=== PATIENT | male | born 1975 | race Caucasian/White ===

== ENCOUNTER 2017-11-14 08:26 | Inpatient (IN) ==
--- NOTE | 2017-11-13 16:29 | Discharge Summary ---
<Chris De Anda - Last Filed: 11/14/17 08:31> Orders not resulted at time of discharge: Pending orders 11/14/17 01:00 XR hip complete RT [XR] Routine Hemoglobin and Hematocrit [HEME] Routine Date of Encounter: 11/14/17 - Discharge Diagnosis (1) Morbid obesity with BMI of 40.0-44.9, adult Priority: Secondary Status: Chronic (2) Osteoarthritis of right hip Priority: Primary Status: Chronic Qualifiers: Osteoarthritis type: resulting from hip dysplasia Qualified Code(s): M16.31 - Unilateral osteoarthritis resulting from hip dysplasia, right hip (3) Status post total hip replacement, right Priority: Primary Status: Acute (4) HTN (hypertension) Priority: Secondary Status: Chronic Qualifiers: Hypertension type: unspecified Qualified Code(s): I10 - Essential (primary ) hypertension (5) Hypothyroidism Priority: Secondary Status: Chronic Qualifiers: Hypothyroidism type: unspecified Qualified Code(s): E03.9 - Hypothyroidism , unspecified (6) History of congenital dysplasia of hip Priority: Secondary Status: Chronic - Hospital Course Hospital course: Mr. Bear is a 42 year old male - Time Spent with Patient Total time spent providing and/or coordinating discharge services: - Discharge Medications Prescriptions: Tizanidine HCl 4 mg PO Q6-8H PRN 7 Days #28 tablet PRN Reason: Spasms Home Medications: Aspirin Enteric Coated [Aspirin EC] 325 mg PO BID 10 Days #20 tablet. [Rx] OxyCODONE Immed Rel [Roxicodone 5 MG] 5 mg PO Q6HR PRN 7 Days #28 tablet [Rx] FLUoxetine HCl [Prozac] 60 mg PO DAILY 11/14/17 [History] Levothyroxine [Synthroid] 125 mcg PO 0630 11/14/17 [History] Lisinopril 30 mg PO DAILY 11/14/17 [History] Meloxicam 15 mg PO DAILY 11/14/17 [History] clonazePAM [Klonopin] 0.5 mg PO BID PRN 11/14/17 [History] Tizanidine HCl 4 mg PO Q6-8H PRN 7 Days #28 tablet 11/16/17 [Rx] Allergies/Adverse Reactions: 3 Allergy/AdvReac Type Severity Reaction Status Date / Time No Known Allergies Allergy Verified 11/14/17 08:41 Primary care physician: Ale Cerrato - Patient Status Disposition: Home, Self-Care Condition: Good - Discharge Instructions Follow Up With: Serina Carrasco PAC [Physician Aquaculture Director] - 11/24/17 9:45 am Ale Cerrato BICYCLE INSPECTOR [Primary Care Provider] - Additional Instructions: Discharge Instructions: Total Knee Replacement Please call [facility] ([phone]), your Primary Care Physician, or report to the Emergency Room if you have any of the following symptoms: Nausea, vomiting, fever greater that 101.5, swelling, chest pain, shortness of breath, increased pain/redness/drainage/odor for your incision site, numbness/ tingling, or any other concerning symptoms. ACTIVITY:Weight-bearing as tolerated. You may progress off support (crutches or walker) as tolerated. Incentive Spirometer 10 times an hour. MEDICATIONS: Upon discharge resume your home medications. Take all the medications as prescribed. Take a stool softener if taking narcotic pain medications. Stool softeners are only effective if you drink enough fluids. Drink 6-8 glass of water or fluids a day, unless this is not allowed for another health problem. Despite using stool softeners, if you haven't had a bowel movement in 3 days, please switch to a gentle laxative. Gentle laxatives are sold over the counter. You should have a bowel movement within 24 hours, if not call the office. You will be discharged from the hospital with a prescription for pain medication. You are encouraged to decrease the use of narcotic pain medication as tolerated. Should you require a refill, please call the office. [facility] prescribes narcotic pain medication for only 4-6 weeks after surgery. If you require pain medication beyond this time period, you may be referred to your Primary Care Physician or to the Pain Clinic for further evaluation. Plan ahead for refills on pain medication as many narcotics either need to be picked up at the office or mailed. It is best to call 48-72 hours in advance of needing a prescription refill so you don't run out of medication. To help control the post-operative pain, you may take NSAIDs (Aleve,Advil, Motrin, Ibuprofen, Naprosyn) or Tylenol as prescribed on the bottle in addition to the pain medication. ANTICOAGULATION (blood thinners): Continue your Aspirin, Lovenox or Coumadin as prescribed to help prevent a blood clot in the leg or in the lungs. As long as your incision remains dry and you tolerate the NSAIDs (Aleve, Advil, Motrin, ibuprofen, naprosyn), it is OK to use the NSAIDS while you are taking your anticoagulation medication. Should your incision start to drain, stop the NSAID and contact our office. Common symptoms of blood clot in the legs include: localized pain, swelling, calf tenderness, redness or discoloration of the skin. Blood clot in the lung symptoms include: shortness of breath, rapid pulse, sweating, and chest pain that worsens with deep breathing, coughing up blood, lightheadedness, feelings of anxiety. If you experience any of these symptoms notify your physician immediately, go to the emergency room, or if having trouble breathing, call 911. WOUND CARE: Leave the dressing on for 7 to 10days. You may change the dressing if it becomes saturated greater than 50%. Do not get the dressing wet at anytime. Wash your hands with antibacterial soap, rinse and dry prior to any wound care. If you have eliezer the visiting nurse or rehab facility can remove the stapes 10-14 days after surgery and place steri-strips across the wound. Leave the steri-strips in place until they fall off on their won. You may let water from the shower run on top of the steri-strips. If you do not have a visiting nurse or rehab facility, you will need to return to the office at 10-14 days for the eliezer to be removed. If you have itching or redness around the dressing call the office. FOLLOW-UP: Please follow up with your surgeon in the orthopedic clinic in 4 weeks from the day of surgery. If you have eliezer that need to be removed, you will need to come back to the office in 10-14 days from the day of surgery. <Shayy Rodriguez E - Last Filed: 11/16/17 16:14> Orders not resulted at time of discharge: Pending orders 11/14/17 01:00 XR hip complete RT [XR] Routine Hemoglobin and Hematocrit [HEME] Routine Date of Encounter: 11/16/17 Time of Encounter: 11:56 - Discharge Diagnosis (1) Osteoarthritis of right hip Priority: Primary Status: Chronic Qualifiers: Osteoarthritis type: resulting from hip dysplasia Qualified Code(s): M16.31 - Unilateral osteoarthritis resulting from hip dysplasia, right hip (2) Status post total hip replacement, right Priority: Primary Status: Acute (3) HTN (hypertension) Priority: Secondary Status: Chronic Qualifiers: Hypertension type: unspecified Qualified Code(s): I10 - Essential (primary ) hypertension (4) Hypothyroidism Priority: Secondary Status: Chronic Qualifiers: Hypothyroidism type: unspecified Qualified Code(s): E03.9 - Hypothyroidism , unspecified (5) History of congenital dysplasia of hip Priority: Secondary Status: Chronic (6) Obesity Priority: Secondary Status: Chronic Qualifiers: Obesity type: unspecified obesity type Obesity classification: unspecified obesity classification Serious obesity comorbidity presence: unspecified whether serious comorbidity present Qualified Code(s): E66.9 - Obesity, unspecified - Hospital Course Hospital course: Mr. Bear is a 42 year old male POD#2 status post right total hip robotic 11/14/17 Dr. De Anda PCR - Patient seen at bedside. Aunt at bedside. Alert and oriented x 3. Incision is clean dry and intact. Dressing intact. No calf tenderness to palpation bilaterally. Neurovascularly intact bilateral lower extremities. Labwork and medications reviewed. Vital signs reviewed. Pain control: Adequate - Tizanidine and Lidoderm for local and systemic pain relief as well as ibuprofen for swelling and pain. Participating in PT. recommending outpatient. All questions and concerns addressed. Educated on use of incentive spirometer, ambulation, and hydration. Patient educated on post-operative restrictions and care. Addressed: see above. D/C plan: Home with outpatient therapy today - Time Spent with Patient Total time spent providing and/or coordinating discharge services: Date of admission: 11/14/17 Primary care physician: Ale Cerrato Anticipated date of discharge: 11/16/17 Labs on day of discharge: Laboratory Results - last 24 hr 11/16/17 11/16/17 00:56 00:56 Hgb 9.6 L D Hct 28.9 L Sodium 135 L Potassium 4.1 Chloride 106 Carbon Dioxide 22 L BUN 18 Creatinine 1.05 Est GFR ( Amer) > 60 Est GFR (Non-Af Amer) > 60 BUN/Creatinine Ratio 17 Glucose 109 H Calculated Osmolality 282 Calcium 8.7 Vital Signs (72 hours) 07/30/18 08:44 11/14/17 09:32 11/14/17 10:21 Temperature 98.5 F Pulse Rate 105 Respiratory Rate 18 18 15 Blood Pressure 138/91 136/78 O2 Sat by Pulse Oximetry 95 96 99 11/14/17 12:06 11/14/17 12:16 11/14/17 12:26 Temperature 97.2 F L Pulse Rate 107 116 118 Respiratory Rate 14 14 13 Blood Pressure 139/80 137/86 130/89 O2 Sat by Pulse Oximetry 92 94 90 11/14/17 12:36 11/14/17 12:46 11/14/17 13:05 Temperature 98.3 F 98.3 F 97.7 F Pulse Rate 116 113 115 Respiratory Rate 14 14 Blood Pressure 121/67 122/82 122/71 O2 Sat by Pulse Oximetry 96 97 92 11/14/17 13:34 11/14/17 14:27 11/14/17 15:56 Temperature 97.9 F 98.2 F 97.3 F L Pulse Rate 110 102 103 Respiratory Rate Blood Pressure 119/72 129/81 145/80 O2 Sat by Pulse Oximetry 99 94 96 11/14/17 18:00 11/14/17 22:23 11/15/17 02:58 Temperature 97.9 F 98.0 F 98.5 F Pulse Rate 100 109 102 Respiratory Rate 18 16 Blood Pressure 128/78 137/72 145/72 O2 Sat by Pulse Oximetry 96 93 94 11/15/17 07:39 11/15/17 10:55 11/15/17 16:10 Temperature 98.6 F 98.9 F 98.6 F Pulse Rate 115 114 120 Respiratory Rate 16 16 16 Blood Pressure 158/106 117/69 110/66 O2 Sat by Pulse Oximetry 96 95 94 11/15/17 19:19 11/15/17 23:00 11/15/17 23:19 Temperature 99.0 F 98.6 F Pulse Rate 113 101 Respiratory Rate 22 19 Blood Pressure 94/55 89/48 92/42 O2 Sat by Pulse Oximetry 93 92 11/16/17 02:28 11/16/17 07:18 Temperature 98.8 F 99.2 F Pulse Rate 103 122 Respiratory Rate 16 18 Blood Pressure 127/71 105/62 O2 Sat by Pulse Oximetry 94 94 - Patient Status Functional capacity at discharge: uses cane/walker Overall status at discharge: patient is progressing back to baseline - Diet and Activity Activity: as per physical therapy Diet: advance to your usual diet
--- NOTE | 2017-11-14 08:31 | History & Physical Report ---
Date of Encounter: 11/14/17 Time of Encounter: 08:31 24 Hour HP Update - Instructions Instructions: If the History and Physical is less than 30 days old and was completed prior to A.M. admission and or procedure and has NOT been updated on calendar day of procedure please complete this update prior to performing procedure. - Update Patient reports changes in Medical Condition: No Changes in examination, assessment, or condition: No Changes in Medication: No Preop tests/diagnostics Reviewed: Yes Surgery Remains Indicated: Yes Consent for Planned Operative Procedure(s) Verified: Yes - Pre-Operative Checklist Preoperative Checklist Indicated: No Prophylactic Antibiotic Ordered: Yes Is VTE Prophylaxis Indicated?: Yes
[2017-11-14] MEDS ORDERED: CeFAZolin Syr 2,000MG/20 ML 2,000 MG/20 ML SYRINGE IVPB ONE (08:42)
[2017-11-14] MEDS ORDERED: Ethanol\\Acetic Acid\\Na Ace\\Ben 1,000 ML IRRIG.SOLN IR ONE (08:44)
[2017-11-14] MEDS ORDERED: Ringers Solution, Lactated 1,000 ML IVC SCH ×2 (08:45→13:13)
--- NOTE | 2017-11-14 09:12 | Anesthesia Evaluation PreOp ---
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 [Rx] OxyCODONE Immed Rel [Roxicodone 5 MG] 5 mg PO Q6HR PRN 7 Days #28 tablet [Rx] Cyclobenzaprine [Flexeril] 10 mg PO BID 11/14/17 [History] FLUoxetine HCl [Prozac] 60 mg PO DAILY 11/14/17 [History] Levothyroxine [Synthroid] 125 mcg PO 0630 11/14/17 [History] Lisinopril [Lisinopril] 30 mg PO DAILY 11/14/17 [History] Meloxicam [Meloxicam] 15 mg PO DAILY 11/14/17 [History] clonazePAM [Klonopin] 0.5 mg PO BID PRN 11/14/17 [History] 3 Allergy/AdvReac Type Severity Reaction Status Date / Time No Known Allergies Allergy Verified 11/14/17 08:41 - Meds/Allergy Pre-op Review Medications Reviewed: Yes Allergies Reviewed: Yes Beta Blockers on Current Med List: No Anesthesia Results - Labs Laboratory Tests 10/31/17 10/31/17 10/31/17 13:54 13:54 13:54 Hgb 15.6 Hct 46.4 Plt Count 287 PT 10.9 INR 1.0 APTT 37.3 H Sodium 136 Potassium 3.7 Chloride 106 Carbon Dioxide 17 L BUN 16 Creatinine 1.01 Est GFR (Non-Af Amer) > 60 - Imaging EKG: report reviewed (Sinus tachycardia) Anesthesia Exam O2 Sat Height 1.7 m Height 1.7 m Height 1.7 m Weight 116.12 kg Weight 116.12 kg Weight 116.12 kg O2 Sat by Pulse Oximetry 95 Vital Signs Temp Pulse Resp BP Pulse Ox 98.5 F 105 18 138/91 95 11/14/17 08:44 11/14/17 08:44 11/14/17 08:44 11/14/17 08:44 11/14/17 08:44 NPO (# of Hours): 8 - HEENT Pupil (Motor): Pupils equal Mallampati: II Teeth: Normal Oral Opening: Greater than 3 - Cardiac Rhythm: Regular - Pulmonary Breath Sounds: bilateral Clear Anesthesia Assess/Plan ASA Score: 3 Modified [place] Scale for Level of Consciousness: Cooperative, oriented, and tranquil Anesthetic Plan: General Monitoring Plan: Standard Monitors Recovery Plan: PACU
[2017-11-14] MEDS ORDERED: *HR* Methadone 10 MG TABLET PO ONE (09:16)
[2017-11-14] MEDS ORDERED: Pregabalin 75 MG CAPSULE PO ONE (09:16)
[2017-11-14] MEDS ORDERED: Ipratropium/Albuterol Neb 3 ML IH ONE (09:16)
[2017-11-14] MEDS ORDERED: *HR* OxyCODONE Immed Rel 5 MG TABLET PO PRN (09:35)
[2017-11-14] MEDS ORDERED: *HR* HYDROmorphone (PF) 1 MG/ML SYRINGE IVP PRN (09:35)
[2017-11-14] MEDS ORDERED: *HR* Promethazine 25 MG/ML VIAL IVP PRN (09:35)
[2017-11-14] MEDS ORDERED: *HR* Labetalol 20 MG/4 ML SYRINGE IVP PRN (09:35)
[2017-11-14] MEDS ORDERED: Acetaminophen IV 1,000 MG/100 ML INFUS..BTL ONE (09:52)
[2017-11-14] MEDS ORDERED: *HR* HYDROmorphone 2 MG/ML SYRINGE ONE (09:57)
[2017-11-14] MEDS ORDERED: *HR* Propofol 200 MG/20 ML VIAL IVP ONE (10:01)
[2017-11-14] MEDS ORDERED: *HR* Midazolam HCl 2 MG/2 ML VIAL ONE (10:01)
[2017-11-14] MEDS ORDERED: Lidocaine -MPF 2% 2 ML VIAL ONE (10:02)
[2017-11-14] MEDS ORDERED: *HR* Succinylcholine 200 MG/10 ML VIAL IVP ONE (10:05)
[2017-11-14] MEDS ORDERED: Lidocaine -MPF 4% 5 ML AMPUL ONE (10:07)
[2017-11-14] MEDS ORDERED: *HR* Magnesium Sulfate 1 GM/2 ML VIAL ONE (10:40)
[2017-11-14] MEDS ORDERED: Ketorolac 30 MG/ML VIAL ONE (10:40)
[2017-11-14] MEDS ORDERED: Ondansetron 4 MG/2 ML VIAL ONE (10:40)
[2017-11-14] MEDS ORDERED: Dexamethasone 4 MG/ML VIAL ONE (10:40)
[2017-11-14] MEDS ORDERED: *HR* PHENYLEPHRINE 1,000 MCG/10 ML SYRINGE IVP ONE (11:28)
--- NOTE | 2017-11-14 11:35 | Orthopedic Operative Note ---
Date of procedure: 11/14/17 Pre-op diagnosis: Right hip developmental dysplasia/arthritis Post-op diagnosis: same Procedure: Procedure: Right Total Hip Replacment robotic-assisted Estimated blood loss: 300 cc Hardware: Metal and polyethylene replacement. Inna DM Cup: 64 cup Femoral size 9 stem Head: 4 head with Teagan Procedural Notes: Grade 4 arthritic changes femoral head acetabular socket, procedure performed with robotic assistance. 2 mm long operative versus nonoperative side both sides with developed mental dysplasia and arthritis Operative procedure: The patient was brought to the operating room and placed on the operating room table. After general anesthesia was administered the patient was placed in the lateral decubitus position with the operative leg up. All pressure points were padded appropriately and the head was stabilized in the neutral position. The operative extremity was prepped and draped in the sterile surgical fashion patient received IV antibiotic prior to skin incision. 3 Steinmann pins were placed in the iliac crest 3 cm proximal to the anterior superior iliac spine this was for the robotic-assisted sensor. This was done through a small 2 cm incision. A standard posterior approach is made to the operative hip, the incision was made through the skin and subcutaneous tissue hemostasis was obtained with Bovie cautery. Using careful sharp dissection the fascia was identified and incised exposing the external rotators. The femoral checkpoint was placed leg length was measured at this time utilizing robotic assistance. The external rotators were released off the greater trochanter and tagged with # 2 FiberWire suture. The capsule was T'd open and the hip was brought into internal rotation. Patient noted to have grade 4 arthritic changes femoral head and severe deformity. The femoral neck cut was made at the appropriate level roughly 5 mm proximal to the lesser trochanter aced on preoperative templating. An anterior capsulotomy was performed for the anterior retractor. Soft tissues removed from the acetabulum. 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 The acetabulum checkpoint was placed confirmed. The acetabulum was then mapped with robotic assistance. Based on the preoperative plan the acetabulum was reamed in multiple steps with the last reamer being a 63 reamer. The 64 acetabulum was impacted with robotic assistance and 42 degrees of abduction and 19 degrees of anteversion. The hip was brought back in to internal rotation and prepared with the boxing promoter followed by the canal finder followed by the reaming process to a size 9/ 10 broaching process in 20 degrees anteversion. It was broached up to the appropriate size 9. Trial reduction revealed leg lengths close to normal. The femoral implant was impacted in place in 20 degrees of anteversion. Trial reduction found the hip to be stable with 4 head and Teagan. The trials were removed and the real implants were impacted in place. The hip was reduced, patient had robotic confirmed leg length of 25 mm longer than the contralateral side. The hip had excellent stability with forward flexion to 90 degrees adduction of 30 degrees and internal rotation of 60 degrees. The hip had no shuck. The hips after 2 minutes with a antibacterial solution. It was irrigated out with 2 L of pulse irrigation. The checkpoints were removed, Steinmann pins were removed. The hip was closed by the PA. The deep tissue was irrigated and closed deep with #1 PDS suture superficially with 0 PDS suture and skin was closed with Dermabond and zip tie. The patient was placed in a sterile dressing and abduction pillow. The patient was extubated and transferred to the recovery room in stable condition. Anesthesia: GETA Surgeon: Chris De Anda Was there an therapist's assistant present: No Estimated blood loss (cc): 300 Condition: stable Disposition: PACU
[2017-11-14 12:53] LABS: Hematocrit 43.2 % (37.5-50.1); Hemoglobin 14.6 g/dL (12.9-16.9)
[2017-11-14] MEDS ORDERED: Sennosides 8.6 MG TABLET PO PRN (13:13)
[2017-11-14] MEDS ORDERED: clonazePAM 0.5 MG TABLET PO PRN (13:13)
[2017-11-14] MEDS ORDERED: MOM Conc 10 ML UD.LIQ PO PRN (13:13)
[2017-11-14] MEDS ORDERED: Naloxone 0.4 MG/ML INJ IVP PRN (13:13)
[2017-11-14] MEDS ORDERED: Ondansetron 4 MG/2 ML VIAL IVP PRN (13:13)
[2017-11-14] MEDS ORDERED: Temazepam 15 MG CAPSULE PO PRN (13:13)
[2017-11-14] MEDS ORDERED: traMADol 50 MG TABLET PO PRN (13:13)
[2017-11-14] MEDS: Multivit/Ca/Min/Fe/FA 1 TAB TABLET PO SCH (14:49)
[2017-11-14] MEDS: *HR* OxyCODONE/APAP 5/325 TABLET PO PRN (14:50)
--- NOTE | 2017-11-14 16:03 | Event Note ---
Date of Encounter: 11/14/17 Time of Encounter: 16:01 Notified by nursing that patient's dressing was saturating through opsite. Incision inspected. Zipline had come unstuck. Incision cleansed and zipline reattempted with no success re: sticking. Orient placed. Incision cleansed. Honeycomb placed. Patient tolerated well. Medipore + ABD pad placed to aid in securing posterior aspect. Requested nursing check dressing in 1 hour and if honeycomb coming undone to remove and cleanse incision and place ABDx3 and Medipore to incision length. Verbalized understanding.
[2017-11-14] MEDS ORDERED: *HR* Enoxaparin 30 MG/0.3 ML SYRINGE SQ SCH (18:00)
--- NOTE | 2017-11-14 18:25 | Anesthesia Evaluation Post Op ---
Date of Encounter: 11/14/17 Time of Encounter: 12:42 Notes: Patient's vital signs have been reviewed. Patient is stable postoperatively and has adequately recovered from anesthesia. Patient is determined to have stable airway patency and respiratory function including respiratory rate and oxygen saturation. Patient has a stable heart rate, blood pressure and adequate hydration. Patients mental status is acceptable. Patients temperature is appropriate. Pain and nausea are adequately controlled. - Discharge PostOp Status: Transfer Patient to floor
[2017-11-14] MEDS: Ascorbic Acid 500 MG TABLET PO SCH (20:41)
[2017-11-14] MEDS: *HR* Enoxaparin 30 MG/0.3 ML SYRINGE SQ SCH (20:44)
[2017-11-15 01:44] LABS: Hematocrit 37.9 % (37.5-50.1); Hemoglobin 13.1 g/dL (12.9-16.9)
[2017-11-15 02:03] LABS: BUN/Creatinine Ratio 12 (6-26); Blood Urea Nitrogen 12 mg/dL (6-20); Carbon Dioxide 22 mEq/L (23-29); Chloride 102 mEq/L (98-107); Potassium 4.4 mEq/L (3.5-5.1); Sodium 133 mEq/L (136-145)
[2017-11-15 02:04] LABS: Calcium 9.4 mg/dL (8.6-10.3); Glucose 130 mg/dL (70-105); Osmolality,Calculated 278 (280-300); eGFR For Non-African Americans > 60 (> 60)
[2017-11-15] MEDS: *HR* Enoxaparin 30 MG/0.3 ML SYRINGE SQ SCH ×2 (05:38→17:03)
--- NOTE | 2017-11-15 06:48 | Orthopedics Progress Note ---
Date of Encounter: 11/15/17 Time of Encounter: 06:48 - Assessment and Plan (1) Morbid obesity with BMI of 40.0-44.9, adult Current Visit: Yes Status: Chronic (2) Osteoarthritis of right hip Current Visit: No Status: Chronic Qualifiers: Osteoarthritis type: resulting from hip dysplasia Qualified Code(s): M16.31 - Unilateral osteoarthritis resulting from hip dysplasia, right hip (3) Status post total hip replacement, right Current Visit: No Status: Acute (4) HTN (hypertension) Current Visit: No Status: Chronic Qualifiers: Hypertension type: unspecified Qualified Code(s): I10 - Essential (primary ) hypertension (5) Hypothyroidism Current Visit: No Status: Chronic Qualifiers: Hypothyroidism type: unspecified Qualified Code(s): E03.9 - Hypothyroidism , unspecified (6) History of congenital dysplasia of hip Current Visit: No Status: Chronic Subjective Interval history: Patient was seen this morning doing well without complaints. Afebrile vital signs stable. Operative extremity: Neurovascularly intact Dressing clean dry and intact Calves nontender Assessment and plan: Continue with postoperative care Hematocrit 37 Objective Vital signs: Vital Signs Temp Pulse Resp BP Pulse Ox 11/15/17 02:58 98.5 F 102 16 145/72 94 11/14/17 22:23 98.0 F 109 18 137/72 93 11/14/17 18:00 97.9 F 100 128/78 96 11/14/17 15:56 97.3 F L 103 145/80 96 11/14/17 14:27 98.2 F 102 129/81 94 11/14/17 13:34 97.9 F 110 119/72 99 11/14/17 13:05 97.7 F 115 122/71 92 11/14/17 12:46 98.3 F 113 14 122/82 97 11/14/17 12:36 98.3 F 116 14 121/67 96 11/14/17 12:26 118 13 130/89 90 11/14/17 12:16 116 14 137/86 94 11/14/17 12:06 97.2 F L 107 14 139/80 92 11/14/17 10:21 15 136/78 99 11/14/17 09:32 18 96 11/14/17 08:44 98.5 F 105 18 138/91 95 Intake and Output 0711/14/17 11/15/17 15:59 23:59 07:59 Intake Total 200 / 200 100 / 100 Output Total 300 / 300 325 / 325 550 / 550 Balance -300 / -300 -125 / -125 -450 / -450 Intake: IV Fluids 100 / 100 100 / 100 Ancef 2,000 MG In 0.9 % Sodium 100 / 100 100 / 100 Chloride 100 ML @ 200 mls/hr IVPB Q8HR ODALYS Rx#:[id number] Oral 100 / 100 Output: Urine 325 / 325 550 / 550 Estimated Blood Loss 300 / 300 Other: # Voids 2 Weight 116.12 kg - Labs CBC & BMP: 11/15/17 01:25 11/15/17 01:25 Labs: Abnormal lab results Sodium 133 mEq/L (136-145) L 11/15/17 01:25 Carbon Dioxide 22 mEq/L (23-29) L 11/15/17 01:25 Glucose 130 mg/dL (70-105) H 11/15/17 01:25 Calculated Osmolality 278 (280-300) L 11/15/17 01:25 - VTE Documentation of Mechanical Device: Venous foot pump, device Consult Discharge Plan - Plan Referrals: Ale Cerrato CNP [Primary Care Provider] -
[2017-11-15] MEDS: Multivit/Ca/Min/Fe/FA 1 TAB TABLET PO SCH (07:47)
[2017-11-15] MEDS: *HR* OxyCODONE/APAP 5/325 TABLET PO PRN (07:47)
[2017-11-15] MEDS: Ascorbic Acid 500 MG TABLET PO SCH ×2 (07:47→17:03)
[2017-11-15] MEDS: FLUoxetine 20 MG CAPSULE PO SCH (07:47)
[2017-11-15] MEDS ORDERED: tiZANidine 4 MG TABLET PO PRN (12:32)
[2017-11-15] MEDS ORDERED: Ibuprofen 600 MG TABLET PO PRN (12:33)
[2017-11-15] MEDS: *HR* OxyCODONE Immed Rel 5 MG TABLET PO PRN ×2 (12:38→18:25)
--- NOTE | 2017-11-15 18:28 | Event Note ---
Date of Encounter: 11/15/17 Time of Encounter: 12:45 PCR- POD#1 status post right total hip robotic 11/14/17 Dr. De Anda PCR - Patient seen at bedside. No family at bedside. Alert and oriented x 3. Incision is clean dry and intact. Dressing intact. No calf tenderness to palpation bilaterally. Neurovascularly intact bilateral lower extremities. Labwork and medications reviewed. H/H 13.1/37.9 Vital signs reviewed. Pain control: Adequate - adding tizanidine and Lidoderm for local and systemic pain relief as well as ibuprofen for swelling and pain. Participating in PT. recommending outpatient. All questions and concerns addressed. Educated on use of incentive spirometer, ambulation, and hydration. Patient educated on post-operative restrictions and care. Addressed: see above. D/C plan: Home with outpatient therapy tomorrow
[2017-11-16 01:20] LABS: Hematocrit 28.9 % (37.5-50.1); Hemoglobin 9.6 g/dL (12.9-16.9)
[2017-11-16 01:37] LABS: BUN/Creatinine Ratio 17 (6-26); Blood Urea Nitrogen 18 mg/dL (6-20); Calcium 8.7 mg/dL (8.6-10.3); Carbon Dioxide 22 mEq/L (23-29); Chloride 106 mEq/L (98-107); Glucose 109 mg/dL (70-105); Osmolality,Calculated 282 (280-300); Potassium 4.1 mEq/L (3.5-5.1); Sodium 135 mEq/L (136-145); eGFR For Non-African Americans > 60 (> 60)
[2017-11-16] MEDS: *HR* Enoxaparin 30 MG/0.3 ML SYRINGE SQ SCH (05:54)
[2017-11-16] MEDS: *HR* OxyCODONE Immed Rel 5 MG TABLET PO PRN ×2 (05:55→10:03)
--- NOTE | 2017-11-16 06:47 | Orthopedics Progress Note ---
Date of Encounter: 11/16/17 Time of Encounter: 06:46 - Assessment and Plan (1) Morbid obesity with BMI of 40.0-44.9, adult Current Visit: Yes Status: Chronic (2) Osteoarthritis of right hip Current Visit: No Status: Chronic Qualifiers: Osteoarthritis type: resulting from hip dysplasia Qualified Code(s): M16.31 - Unilateral osteoarthritis resulting from hip dysplasia, right hip (3) Status post total hip replacement, right Current Visit: No Status: Acute (4) HTN (hypertension) Current Visit: No Status: Chronic Qualifiers: Hypertension type: unspecified Qualified Code(s): I10 - Essential (primary ) hypertension (5) Hypothyroidism Current Visit: No Status: Chronic Qualifiers: Hypothyroidism type: unspecified Qualified Code(s): E03.9 - Hypothyroidism , unspecified (6) History of congenital dysplasia of hip Current Visit: No Status: Chronic (7) Acute blood loss anemia Current Visit: Yes Status: Acute Subjective Interval history: Patient was seen this morning doing well without complaints. Afebrile vital signs stable. Operative extremity: Neurovascularly intact Dressing clean dry and intact Calves nontender Assessment and plan: Continue with postoperative care Hematocrit 28.9 Objective Vital signs: Vital Signs Temp Pulse Resp BP Pulse Ox 11/16/17 02:28 98.8 F 103 16 127/71 94 11/15/17 23:19 92/42 11/15/17 23:00 98.6 F 101 19 89/48 92 11/15/17 19:19 99.0 F 113 22 94/55 93 11/15/17 16:10 98.6 F 120 16 110/66 94 11/15/17 10:55 98.9 F 114 16 117/69 95 11/15/17 07:39 98.6 F 115 16 158/106 96 Intake and Output 11/15/17 11/15/17 11/16/17 15:59 23:59 07:59 Intake Total 720 / 720 580 / 580 Output Total 150 / 150 200 / 200 800 / 800 Balance 570 / 570 380 / 380 -800 / -800 Intake: Oral 720 / 720 580 / 580 Output: Urine 150 / 150 200 / 200 800 / 800 Other: Meal Lunch Dinner Percent of Meal Consumed 100% 100% - Labs CBC & BMP: 11/16/17 00:56 11/16/17 00:56 Labs: Abnormal lab results Hgb 9.6 g/dL (12.9-16.9) L D 11/16/17 00:56 Hct 28.9 % (37.5-50.1) L 11/16/17 00:56 Sodium 135 mEq/L (136-145) L 11/16/17 00:56 Carbon Dioxide 22 mEq/L (23-29) L 11/16/17 00:56 Glucose 109 mg/dL (70-105) H 11/16/17 00:56 - VTE Documentation of Mechanical Device: Venous foot pump, device Consult Discharge Plan - Plan Referrals: Ale Cerrato CNP [Primary Care Provider] -
[2017-11-16 07:23] VITALS: BP 105/62
[2017-11-16] MEDS: Ascorbic Acid 500 MG TABLET PO SCH (08:14)
[2017-11-16] MEDS: Multivit/Ca/Min/Fe/FA 1 TAB TABLET PO SCH (08:14)
[2017-11-16] MEDS: FLUoxetine 20 MG CAPSULE PO SCH (08:14)
== END 2017-11-16 13:16 | disposition home or self-care (01) | DRG 470 ==
LOC: SAMDAY 08:26 → 3NENU 12:44
PROVIDERS: ADMIT Orthopaedic Surgery; ATTEND Orthopaedic Surgery

== ENCOUNTER 2018-01-09 11:13 | Inpatient (IN) ==
--- NOTE | 2018-01-08 21:21 | Discharge Summary ---
<Chris De Anda - Last Filed: 01/09/18 11:45> Orders not resulted at time of discharge: Pending orders 01/09/18 21:15 XR hip complete LT [XR] Routine 01/09/18 21:16 H/H [Hemoglobin and Hematocrit] [HEME] Routine Date of Encounter: 01/09/18 - Discharge Diagnosis (1) Arthritis of left hip Priority: Primary Status: Chronic (2) Status post total hip replacement, left Priority: Primary Status: Acute (3) Status post total hip replacement, right Priority: Secondary Status: Chronic (4) HTN (hypertension) Priority: Secondary Status: Chronic Qualifiers: Hypertension type: essential hypertension Qualified Code(s): I10 - Essential (primary) hypertension (5) History of congenital dysplasia of hip Priority: Primary Status: Chronic (6) Hypothyroidism Priority: Secondary Status: Chronic Qualifiers: Hypothyroidism type: unspecified Qualified Code(s): E03.9 - Hypothyroidism , unspecified (7) Morbid obesity with BMI of 40.0-44.9, adult Priority: Secondary Status: Chronic - Hospital Course Hospital course: Mr. Bear is a 42 year old male - Time Spent with Patient Total time spent providing and/or coordinating discharge services: - Discharge Medications Home Medications: Aspirin Enteric Coated [Aspirin EC] 325 mg PO BID 10 Days #20 tablet. [Rx] OxyCODONE Immed Rel [Roxicodone 5 MG] 5 mg PO Q6HR PRN 7 Days #28 tablet [Rx] Albuterol Sulfate [Albuterol Inhaler] 2 puff IH Q4HR PRN 01/09/18 [History] Cyclobenzaprine [Flexeril] 10 mg PO BID 01/09/18 [History] FLUoxetine HCl [PROzac] 40 mg PO QPM 01/09/18 [History] FLUoxetine HCl [Prozac] 40 mg PO QAM 01/09/18 [History] Gabapentin [Neurontin] 800 mg PO TID 01/09/18 [History] Levothyroxine [Synthroid] 125 mcg PO 0630 01/09/18 [History] Lisinopril [Lisinopril] 30 mg PO DAILY 01/09/18 [History] Meloxicam [Mobic] 15 mg PO DAILY 01/09/18 [History] Simvastatin [Zocor] 40 mg PO HS 01/09/18 [History] Sulfamethoxazole/Trimeth DS [Bactrim DS] 1 each PO BID 10 Days #20 tablet [Rx] clonazePAM [Clonazepam] 1 mg PO BID 01/09/18 [History] Allergies/Adverse Reactions: 3 Allergy/AdvReac Type Severity Reaction Status Date / Time No Known Allergies Allergy Verified 01/09/18 12:04 Primary care physician: Ale Cerrato - Patient Status Disposition: Home Health Service Condition: Good - Discharge Instructions Follow Up With: Serina Carrasco PAC [Physician Curriculum Developer] - 01/19/18 9:30 am Ale Cerrato, DRY CHAIN PULLER [Primary Care Provider] - (Please follow up regarding chronic tachycardia. ) Additional Instructions: Discharge Instructions: Total Hip Replacement Please call [facility] ([phone]), your Primary Care Physician, or report to the Emergency Room if you have any of the following symptoms: Nausea, vomiting, fever greater that 101.5, swelling, chest pain, shortness of breath, increased pain/redness/drainage/odor for your incision site, numbness/ tingling, or any other concerning symptoms. ACTIVITY:Weight-bearing as tolerated for 8 weeks with hip dislocation precautions that physical therapy taught you. You may progress as tolerated under the guidance of your physical therapist. You do not need to sleep with a pillow between your legs. You can also seep on the operative side or on your stomach. Incentive Spirometer 10 times an hour. MEDICATIONS: Upon discharge resume your home medications. Take all the medications as prescribed. Take a stool softener if taking narcotic pain medications. Stool softeners are only effective if you drink enough fluids. Drink 6-8 glass of water or fluids a day, unless this is not allowed for another health problem. Despite using stool softeners, if you haven't had a bowel movement in 3 days, please switch to a gentle laxative. Gentle laxatives are sold over the counter. You should have a bowel movement within 24 hours, if not call the office. You will be discharged from the hospital with a prescription for pain medication. You are encouraged to decrease the use of narcotic pain medication as tolerated. Should you require a refill, please call the office. [facility] prescribes narcotic pain medication for only 4-6 weeks after surgery. If you require pain medication beyond this time period, you may be referred to your Primary Care Physician or to the Pain Clinic for further evaluation. Plan ahead for refills on pain medication as many narcotics either need to be picked up at the office or mailed. It is best to call 48-72 hours in advance of needing a prescription refill so you don't run out of medication. To help control the post-operative pain, you may take NSAIDs (Aleve,Advil, Motrin, ibuprofen, naprosyn) or Tylenol as prescribed on the bottle in addition to the pain medication. ANTICOAGULATION (blood thinners): Continue your Aspirin, Lovenox or Coumadin as prescribed to help prevent a blood clot in the leg or in the lungs. As long as your incision remains dry and you tolerate the NSAIDs (Aleve, Advil, Motrin, Ibuprofen, Naprosyn), it is OK to use the NSAIDS while you are taking your anticoagulation medication. Should your incision start to drain, stop the NSAID and contact our office. Common symptoms of blood clot in the legs include: localized pain, swelling, calf tenderness, redness or discoloration of the skin. Blood clot in the lung symptoms include: shortness of breath, rapid pulse, sweating, and chest pain that worsens with deep breathing, coughing up blood, lightheadedness, feelings of anxiety. If you experience any of these symptoms notify your physician immediately, go to the emergency room, or if having trouble breathing, call 911. WOUND CARE: Leave the dressing on for 7 to 10days. You may change the dressing if it is saturated greater than 50%. Do not get the dressing wet at anytime. Wash your hands with antibacterial soap, rinse and dry prior to any wound care. If you have eliezer the visiting nurse or rehab facility can remove the stapes 10-14 days after surgery and place steri-strips across the wound. Leave the steri-strips in place until they fall off on their own. You may let water from the shower run on top of the steri-strips. If you do not have a visiting nurse or rehab facility, you will need to return to the office at 10-14 days for the eliezer to be removed. If you have itching or redness around the dressing call the office. FOLLOW-UP: Please follow up with your surgeon in the orthopedic clinic in 6 weeks from the day of surgery. If you have eliezer that need to be removed, you will need to come back to the office in 10-14 days from the day of surgery. <eSrina Carrasco - Last Filed: 01/12/18 16:52> Date of Encounter: 01/12/18 Time of Encounter: 16:45 - Discharge Diagnosis (1) Status post total hip replacement, left Priority: Primary Status: Acute Comments: Opsite dressing, leave intact until first post-operative visit. If dressing becomes >50% saturated, contact office, remove dressing and place appropriate dressing in its place. Do not allow for dressing to get wet. Zipline/[place] in place, plan to remove at post-operative day #14-16. Total Joint Precautions x 6 weeks Apply cold therapy wrap 3-6x/day for 20 minutes at a time. Encourage ambulation throughout the day Use Incentive spirometer 10x/hour. Elevate affected extremity above heart as tolerated. Brace: Wear hip abductor brace at night x 6 weeks.~ Sent on BActrim due to history of wound complication (2) History of congenital dysplasia of hip Priority: Primary Status: Chronic (3) Arthritis of left hip Priority: Primary Status: Chronic (4) HTN (hypertension) Priority: Secondary Status: Chronic Qualifiers: Hypertension type: essential hypertension Qualified Code(s): I10 - Essential (primary) hypertension (5) Hypothyroidism Status: Chronic Qualifiers: Hypothyroidism type: unspecified Qualified Code(s): E03.9 - Hypothyroidism , unspecified (6) Morbid obesity with BMI of 40.0-44.9, adult Priority: Secondary Status: Chronic (7) Acute blood loss anemia Priority: Secondary Status: Acute Comments: Recieved 2 units of blood (8) Tachycardia Priority: Secondary Status: Acute Comments: Follow up with PCPKalyn Farmer at discharge - Hospital Course Hospital course: Mr. Bear is a 42 year old male, status post - Right THR 01/09/18 Patient had tachycardia, which he reports to be chronic, improved with 2 blood transfusions Vital Signs (72 hours) 01/09/18 17:00 01/09/18 19:57 01/09/18 23:06 Temperature 97.6 F 97.8 F 97.8 F Pulse Rate 99 101 96 Respiratory Rate 16 17 17 Blood Pressure 103/65 104/66 111/70 O2 Sat by Pulse Oximetry 94 97 99 01/10/18 03:41 01/10/18 07:43 01/10/18 11:44 Temperature 97.3 F L 98.8 F 99.0 F Pulse Rate 69 96 115 Respiratory Rate 17 18 18 Blood Pressure 137/74 113/71 102/63 O2 Sat by Pulse Oximetry 99 96 96 01/10/18 16:32 01/10/18 17:04 01/10/18 18:46 Temperature 99.9 F H 99.0 F Pulse Rate 125 123 Respiratory Rate 20 17 Blood Pressure 94/57 104/70 112/55 O2 Sat by Pulse Oximetry 93 93 01/10/18 22:19 01/11/18 04:05 01/11/18 06:47 Temperature 100.3 F H 99.1 F 98.4 F Pulse Rate 124 110 118 Respiratory Rate 18 18 16 Blood Pressure 106/57 125/74 116/75 O2 Sat by Pulse Oximetry 93 93 96 01/11/18 10:16 01/11/18 17:00 01/11/18 19:00 Temperature 97.4 F L 98.1 F 98.1 F Pulse Rate 121 129 131 Respiratory Rate 16 16 17 Blood Pressure 121/73 105/57 95/59 O2 Sat by Pulse Oximetry 96 96 95 01/11/18 21:49 01/11/18 21:56 01/11/18 22:04 Temperature 100.8 F H 100 F H Pulse Rate 125 124 Respiratory Rate 14 16 Blood Pressure 100/51 115/53 O2 Sat by Pulse Oximetry 93 93 93 01/11/18 23:43 01/12/18 00:51 01/12/18 04:30 Temperature 97.9 F 99.8 F H 98.1 F Pulse Rate 119 115 112 Respiratory Rate 18 15 18 Blood Pressure 107/57 105/58 114/70 O2 Sat by Pulse Oximetry 92 94 95 01/12/18 07:31 01/12/18 09:43 01/12/18 09:45 Temperature 98.8 F 98.3 F 98.3 F Pulse Rate 112 108 111 Respiratory Rate 20 16 Blood Pressure 107/60 112/62 112/62 O2 Sat by Pulse Oximetry 96 94 93 01/12/18 10:06 01/12/18 11:52 01/12/18 12:21 Temperature 98.7 F 99.4 F 99.5 F Pulse Rate 110 112 114 Respiratory Rate 18 Blood Pressure 128/72 129/76 112/75 O2 Sat by Pulse Oximetry 94 97 94 . Otherwise asymp. Denied SOB, CP. He had intermittent low-grade temp 01/11 - improved with IS and deep breathing. Highest temp was 100.8. Continued to deny other symptoms such as cough, wheezing , dypnea. Patient reported pain out of control, however improved once we increased his Flexeril to TID. Patient seen at bedside, without complaints. A&O x 3 Afebrile, vital signs stable. No CP, diaphoresis or SOB. Vital Signs Temp Pulse Resp BP Pulse Ox 01/12/18 12:21 99.5 F 114 112/75 94 01/12/18 11:52 99.4 F 112 18 129/76 97 01/12/18 10:06 98.7 F 110 128/72 94 01/12/18 09:45 98.3 F 111 112/62 93 01/12/18 09:43 98.3 F 108 16 112/62 94 01/12/18 07:31 98.8 F 112 20 107/60 96 01/12/18 04:30 98.1 F 112 18 114/70 95 01/12/18 00:51 99.8 F H 115 15 105/58 94 01/11/18 23:43 97.9 F 119 18 107/57 92 01/11/18 22:04 100 F H 124 16 115/53 93 01/11/18 21:56 93 01/11/18 21:49 100.8 F H 125 14 100/51 93 01/11/18 19:00 98.1 F 131 17 95/59 95 01/11/18 17:00 98.1 F 129 16 105/57 96 Intake and Output 01/12/18 01/12/18 01/12/18 07:59 15:59 23:59 Intake Total 350 / 350 600 / 600 Output Total 950 / 950 200 / 200 Balance -600 / -600 400 / 400 Intake: Oral 300 / 300 Blood Product 350 / 350 300 / 300 Rbcs Leuko Poor As-1 Unit 350 / 350 [id number] Rbcs Leuko Poor As-1 Unit 300 / 300 [id number] Output: Urine 950 / 950 200 / 200 Other: Meal Lunch Percent of Meal Consumed 100% # Voids 1 Weight 117.3 kg Patient Weight 01/12/18 23:59 Weight 117.3 kg Labs reviewed. H/H - stable, asymptomatic Short CBC 01/12/18 Range/Units 04:44 WBC 10.5 (4.3-11.1) K/mcL Hgb 9.2 L (12.9-16.9) g/dL Hct 28.2 L (37.5-50.1) % Plt Count 203 (140-400) K/mcL Neutrophils # 7.8 (1.6-8.9) K/mcL BMP 01/12/18 Range/Units 04:44 Sodium 130 L (136-145) mEq/L Potassium 3.9 (3.5-5.1) mEq/L Chloride 100 (98-107) mEq/L Carbon Dioxide 24 (23-29) mEq/L BUN 15 (6-20) mg/dL Creatinine 0.88 (0.70-1.30) mg/dL Glucose 103 (70-105) mg/dL Calcium 9.2 (8.6-10.3) mg/dL Pain control: adequate Participating in PT. All questions and concerns addressed. Educated on use of incentive spirometer. Encouraged ambulation and proper hydration. Patient educated on post-operative restrictions and post-operative care. Assessment and plan: Continue with postoperative care Discharge plan: Home , discharge today with HH He is to follow up with PCP tomorrow to discuss treatment for chronic tachycardia EKG from 01/11 was normal. BMP stable. - Time Spent with Patient Total time spent providing and/or coordinating discharge services: Primary care physician: Ale Cerrato Discharging clinician: Serina Carrasco Anticipated date of discharge: 01/12/18 - Patient Status Functional capacity at discharge: independent ambulation Overall status at discharge: patient is progressing back to baseline - Diet and Activity Activity: as per physical therapy
--- NOTE | 2018-01-09 11:16 | Anesthesia Evaluation PreOp ---
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 History: Other (anxiety, depression) Other Medical History: Thyroid (hypo), Other (bilat congenital hip dysplasia) Anesthesia History: No Prior Anesthetic Complications, Past Anesthesia (R robotic hip arthroplasty, intussuception as a child) Alcohol Use: occasionally Drug use: none Medications and Allergies RX: FLUoxetine HCl [Prozac] 60 mg PO DAILY 11/14/17 [History] RX: Levothyroxine [Synthroid] 125 mcg PO 0630 11/14/17 [History] RX: Lisinopril 30 mg PO DAILY 11/14/17 [History] RX: Meloxicam 15 mg PO DAILY 11/14/17 [History] RX: clonazePAM [Klonopin] 0.5 mg PO BID PRN 11/14/17 [History] RX: Tizanidine HCl 4 mg PO Q6-8H PRN 7 Days #28 tablet 11/16/17 [Rx] RX: Aspirin Enteric Coated [Aspirin EC] 325 mg PO BID 10 Days #20 tablet. [Rx] RX: OxyCODONE Immed Rel [Roxicodone 5 MG] 5 mg PO Q6HR PRN 7 Days #28 tablet [Rx] 3 Allergy/AdvReac Type Severity Reaction Status Date / Time No Known Allergies Allergy Verified 12/26/17 09:44 - Meds/Allergy Pre-op Review Medications Reviewed: Yes Allergies Reviewed: Yes Beta Blockers on Current Med List: No Anesthesia Results - Labs Laboratory Tests 12/26/17 12/26/17 12/26/17 09:44 09:44 09:44 WBC 6.0 Hgb 13.9 Hct 43.2 Plt Count 323 PT 11.1 INR 1.0 APTT 36.6 H Sodium 138 Potassium 3.9 Chloride 106 Carbon Dioxide 25 BUN 12 Creatinine 0.95 - Imaging EKG: report reviewed (SINUS TACHYCARDIA Electronically Signed On 11-01-2017 8:39: 07 EDT by Dakotah Anderson) Anesthesia Exam O2 Sat Height 1.7 m Weight 117.027 kg Weight: 117kg - HEENT Pupil (Motor): Pupils equal, EOMI Mallampati: III (per 10/2017 anes record, grade III view with Griffin 2 blade, may need glidescope) Teeth: Normal Oral Opening: Greater than 3 - MORTGAGE OPERATIONS MANAGER LOC: Oriented MORTGAGE OPERATIONS MANAGER Motor: Normal RUE, Normal LUE, Normal RLE, Normal LLE, Normal Face MORTGAGE OPERATIONS MANAGER Sensory: Normal: RUE, LUE, RLE, LLE, Face - Cardiac Rhythm: Regular - Pulmonary Breath Sounds: bilateral Clear Respiratory Effort: Symmetrical Anesthesia Assess/Plan ASA Score: 3 (HTN, asthma, hypothyroidism, DM) Modified Mike Scale for Level of Consciousness: Cooperative, oriented, and tranquil Anesthetic Plan: General Monitoring Plan: Standard Monitors Recovery Plan: PACU
[2018-01-09] MEDS ORDERED: Acetaminophen IV 1,000 MG/100 ML INFUS..BTL ONE (11:23)
[2018-01-09] MEDS ORDERED: CeFAZolin Syr 2,000MG/20 ML 2,000 MG/20 ML SYRINGE IVPB ONE (11:31)
[2018-01-09] MEDS ORDERED: Albuterol 2.5 MG/3 ML NEBULIZER IH ONE (11:31)
[2018-01-09] MEDS ORDERED: Ringers Solution, Lactated 1,000 ML IVC SCH (11:45)
--- NOTE | 2018-01-09 11:45 | History & Physical Report ---
Date of Encounter: 01/09/18 Time of Encounter: 11:45 24 Hour HP Update - Instructions Instructions: If the History and Physical is less than 30 days old and was completed prior to A.M. admission and or procedure and has NOT been updated on calendar day of procedure please complete this update prior to performing procedure. - Update Patient reports changes in Medical Condition: No Changes in examination, assessment, or condition: No Changes in Medication: No Preop tests/diagnostics Reviewed: Yes Surgery Remains Indicated: Yes Consent for Planned Operative Procedure(s) Verified: Yes - Pre-Operative Checklist Preoperative Checklist Indicated: No Prophylactic Antibiotic Ordered: Yes Is VTE Prophylaxis Indicated?: Yes
[2018-01-09] MEDS ORDERED: Ethanol\\Acetic Acid\\Na Ace\\Ben 1,000 ML IRRIG.SOLN IR ONE (12:22)
[2018-01-09] MEDS ORDERED: *HR* PHENYLEPHRINE 1,000 MCG/10 ML SYRINGE IVP ONE ×3 (13:27→13:59)
[2018-01-09] MEDS ORDERED: Ondansetron 4 MG/2 ML VIAL ONE (13:27)
[2018-01-09] MEDS ORDERED: Lidocaine -MPF 2% 2 ML VIAL ONE (13:27)
[2018-01-09] MEDS ORDERED: Dexamethasone 4 MG/ML VIAL ONE (13:27)
[2018-01-09] MEDS ORDERED: *HR* FentaNYL (PF) 100 MCG/2 ML VIAL ONE ×2 (13:27→13:52)
[2018-01-09] MEDS ORDERED: *HR* Midazolam HCl 2 MG/2 ML VIAL ONE ×2 (13:27)
[2018-01-09] MEDS ORDERED: *HR* Propofol 200 MG/20 ML VIAL IVP ONE ×2 (13:27)
[2018-01-09] MEDS ORDERED: EPHEDrine 50 MG/ML VIAL ONE (13:27)
[2018-01-09] MEDS ORDERED: Lidocaine -MPF 4% 5 ML AMPUL ONE (13:27)
[2018-01-09] MEDS ORDERED: *HR* Succinylcholine 200 MG/10 ML VIAL IVP ONE (13:27)
[2018-01-09] MEDS ORDERED: *HR* Promethazine 25 MG/ML VIAL IVP PRN (13:43)
--- NOTE | 2018-01-09 13:55 | Orthopedic Operative Note ---
Date of procedure: 01/09/18 Pre-op diagnosis: Left hip arthritis/developmental dysplasia Post-op diagnosis: same Procedure: Procedure: Left Total Hip Replacment robotic-assisted Estimated blood loss: 200 cc Hardware: Metal and polyethylene replacement. 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 procedure performed with robotic assistance. Patient 25 mm shorter operative versus nonoperative leg as measured by preoperative CT scan. Operative procedure: The patient was brought to the operating room and placed on the operating room table. After general anesthesia was administered the patient was placed in the lateral decubitus position with the operative leg up. All pressure points were padded appropriately and the head was stabilized in the neutral position. The operative extremity was prepped and draped in the sterile surgical fashion patient received IV antibiotic prior to skin incision. 3 Steinmann pins were placed in the iliac crest 3 cm proximal to the anterior superior iliac spine this was for the robotic-assisted sensor. This was done through a small 2 cm incision. A standard posterior approach is made to the operative hip, the incision was made through the skin and subcutaneous tissue hemostasis was obtained with Bovie cautery. Using careful sharp dissection the fascia was identified and incised exposing the external rotators. The femoral checkpoint was placed leg length was measured at this time utilizing robotic assistance. The external rotators were released off the greater trochanter and tagged with # 2 FiberWire suture. The capsule was T'd open and the hip was brought into internal rotation. Patient noted to have grade 4 arthritic changes femoral head with severe abnormal formation of the femoral head. The femoral neck cut was made at the appropriate level roughly 15 mm proximal to the lesser trochanter aced on preoperative templating. An anterior capsulotomy was performed for the anterior retractor. Soft tissues removed from the acetabulum. Patient noted to have grade 4 arthritic changes acetabulum with severe abnormal formation of the acetabular socket. The acetabulum checkpoint was placed confirmed. The acetabulum was then mapped with robotic assistance. Based on the preoperative plan the acetabulum was reamed in multiple steps finishing with a 63 reamer. The 64 acetabulum was impacted with robotic assistance and 46 degrees of abduction and 16 degrees of anteversion. The hip was brought back in to internal rotation and prepared with the box printing machine operator followed by the canal finder followed by the reaming process to a size 9/ 10 broaching process in 20 degrees anteversion. It was broached up to the appropriate size 9. Trial reduction revealed leg lengths close to normal. The femoral implant was impacted in place in 20 degrees of anteversion. Trial reduction found the hip to be stable with 0 head and Teagan. The trials were removed and the real implants were impacted in place. The hip was reduced, patient had robotic confirmed leg length of 5 mm longer than the contralateral side. The hip had excellent stability with forward flexion to 90 degrees adduction of 30 degrees and internal rotation of 60 degrees. The hip had no shuck. The hips after 2 minutes with a antibacterial saline solution. It was irrigated out with 2 L of pulse irrigation. The checkpoints were removed, Steinmann pins were removed. The hip was closed by the PA. The deep tissue was irrigated and closed deep with #1 PDS suture superficially with 0 PDS suture and skin was closed with Dermabond and zip tie. The patient was placed in a sterile dressing and abduction pillow. The patient was extubated and transferred to the recovery room in stable condition. Anesthesia: ECHOA Surgeon: Chris De Anda Was there an assistant county engineer present: No Estimated blood loss (cc): 200 Condition: stable Disposition: PACU
[2018-01-09] MEDS ORDERED: Ketorolac 30 MG/ML VIAL ONE (14:14)
[2018-01-09] MEDS: *HR* HYDROmorphone (PF) 1 MG/ML SYRINGE IVP PRN ×4 (14:28→15:15)
[2018-01-09 15:16] LABS: Hematocrit 41.6 % (37.5-50.1); Hemoglobin 13.3 g/dL (12.9-16.9)
--- NOTE | 2018-01-09 15:17 | Anesthesia Evaluation Post Op ---
Date of Encounter: 01/09/18 Time of Encounter: 15:16 - Vital Signs Vital Signs: Vital Signs/O2 Sat/Glucose, Most Current Temp Pulse Resp BP Pulse Ox 01/09/18 14:54 97.3 F L 115 16 110/75 93 01/09/18 14:44 112 16 91/47 94 01/09/18 14:34 112 16 87/56 92 01/09/18 14:24 97.2 F L 112 16 143/79 94 01/09/18 12:00 98.2 F 95 18 111/73 95 01/09/18 11:49 98.2 F 95 18 111/73 95 - Lungs Lungs: Clear Ascult./Percussion - Airway Airway: Non-obstructed - Cardiovascular Regular Rate, Baseline Rhythm - Mental Status Mental Status: Alert & Oriented, Answers Appropriately - Pain Pain Scale: 6 Pain Scale used: Numeric (1 - 10) - Nausea Vomiting Nausea Vomiting: Not Present - Hydration Hydration: NPO, Has not voided Notes: 01/09/18 15:16 HR just above baseline. Receiving 1mg dilaudid now - Discharge PostOp Status: Transfer Patient to floor
[2018-01-09] MEDS ORDERED: MOM Conc 10 ML UD.LIQ PO PRN (16:15)
[2018-01-09] MEDS ORDERED: Naloxone 0.4 MG/ML INJ IVP PRN (16:15)
[2018-01-09] MEDS ORDERED: Ondansetron 4 MG/2 ML VIAL IVP PRN (16:15)
[2018-01-09] MEDS ORDERED: Sennosides 8.6 MG TABLET PO PRN (16:15)
[2018-01-09] MEDS ORDERED: Temazepam 15 MG CAPSULE PO PRN (16:15)
[2018-01-09] MEDS ORDERED: *HR* Enoxaparin 30 MG/0.3 ML SYRINGE SQ SCH (18:00)
[2018-01-09] MEDS: Ascorbic Acid 500 MG TABLET PO SCH (18:04)
[2018-01-09] MEDS: *HR* Enoxaparin 30 MG/0.3 ML SYRINGE SQ SCH (18:04)
[2018-01-09] MEDS: *HR* OxyCODONE/APAP 5/325 TABLET PO PRN (18:04)
[2018-01-09] MEDS: Ringers Solution, Lactated 1,000 ML IVC SCH (18:05)
[2018-01-09] MEDS: FLUoxetine 20 MG CAPSULE PO SCH (18:05)
[2018-01-09] MEDS: CeFAZolin Syr 3,000MG/30 ML 3,000 MG/30 ML SYRINGE IVPB SCH (20:53)
[2018-01-09] MEDS: Gabapentin 400 MG CAPSULE PO SCH (20:54)
[2018-01-09] MEDS: clonazePAM 1 MG TABLET PO SCH (20:54)
[2018-01-10 02:07] LABS: Hematocrit 32.9 % (37.5-50.1)
[2018-01-10 02:11] LABS: Hemoglobin 10.4 g/dL (12.9-16.9)
[2018-01-10 02:17] LABS: BUN/Creatinine Ratio 16 (6-26); Blood Urea Nitrogen 14 mg/dL (6-20); Calcium 8.5 mg/dL (8.6-10.3); Carbon Dioxide 20 mEq/L (23-29); Chloride 103 mEq/L (98-107); Glucose 126 mg/dL (70-105); Osmolality,Calculated 276 (280-300); Potassium 4.5 mEq/L (3.5-5.1); Sodium 132 mEq/L (136-145); eGFR For Non-African Americans > 60 (> 60)
[2018-01-10] MEDS: CeFAZolin Syr 3,000MG/30 ML 3,000 MG/30 ML SYRINGE IVPB SCH (04:44)
[2018-01-10] MEDS: *HR* Enoxaparin 30 MG/0.3 ML SYRINGE SQ SCH ×2 (04:49→17:17)
--- NOTE | 2018-01-10 06:22 | Orthopedics Progress Note ---
Date of Encounter: 01/10/18 Time of Encounter: 06:21 - Assessment and Plan (1) Arthritis of left hip Current Visit: No Status: Chronic (2) Status post total hip replacement, left Current Visit: No Status: Acute (3) Status post total hip replacement, right Current Visit: No Status: Chronic (4) HTN (hypertension) Current Visit: No Status: Chronic Qualifiers: Hypertension type: essential hypertension Qualified Code(s): I10 - Essential (primary) hypertension (5) History of congenital dysplasia of hip Current Visit: No Status: Chronic (6) Hypothyroidism Current Visit: No Status: Chronic Qualifiers: Hypothyroidism type: unspecified Qualified Code(s): E03.9 - Hypothyroidism , unspecified (7) Morbid obesity with BMI of 40.0-44.9, adult Current Visit: No Status: Chronic Subjective Interval history: Patient was seen this morning doing well without complaints. Afebrile vital signs stable. Operative extremity: Neurovascularly intact Dressing clean dry and intact Calves nontender Assessment and plan: Continue with postoperative care Hematocrit 32 Objective Vital signs: Vital Signs Temp Pulse Resp BP Pulse Ox 01/10/18 03:41 97.3 F L 69 17 137/74 99 01/09/18 23:06 97.8 F 96 17 111/70 99 01/09/18 19:57 97.8 F 101 17 104/66 97 01/09/18 17:00 97.6 F 99 16 103/65 94 01/09/18 16:37 97.6 F 101 16 93/58 94 01/09/18 15:56 97.7 F 114 16 102/66 90 01/09/18 15:24 97.5 F L 104 20 96/74 93 01/09/18 15:14 106 20 105/68 93 01/09/18 15:04 110 20 110/73 94 01/09/18 14:54 97.3 F L 115 16 110/75 93 01/09/18 14:44 112 16 91/47 94 01/09/18 14:34 112 16 87/56 92 01/09/18 14:24 97.2 F L 112 16 143/79 94 01/09/18 12:00 98.2 F 95 18 111/73 95 01/09/18 11:49 98.2 F 95 18 111/73 95 Intake and Output 09/01/09/18 01/10/18 15:59 23:59 07:59 Intake Total 30 / 30 Output Total 200 / 200 450 / 450 Balance -200 / -200 -420 / -420 Intake: IV Fluids 30 / 30 Ancef Syringe 3,000 MG/30 ML 3, 30 / 30 000 mg In 30 ml @ 200 mls/hr IVPB Q8H [facility] Rx#:[id number] Output: Urine 450 / 450 Estimated Blood Loss 200 / 200 Other: Weight 117.027 kg - Labs CBC & BMP: 01/10/18 01:31 01/10/18 01:31 Labs: Abnormal lab results Hgb 10.4 g/dL (12.9-16.9) L D 01/10/18 01:31 Hct 32.9 % (37.5-50.1) L 01/10/18 01:31 Sodium 132 mEq/L (136-145) L 01/10/18 01:31 Carbon Dioxide 20 mEq/L (23-29) L 01/10/18 01:31 Glucose 126 mg/dL (70-105) H 01/10/18 01:31 Calculated Osmolality 276 (280-300) L 01/10/18 01:31 Calcium 8.5 mg/dL (8.6-10.3) L 01/10/18 01:31 - VTE Documentation of Mechanical Device: Venous foot pump, device Consult Discharge Plan - Plan Referrals: Ale Cerrato CNP [Primary Care Provider] -
[2018-01-10] MEDS: Gabapentin 400 MG CAPSULE PO SCH ×3 (08:00→21:22)
[2018-01-10] MEDS: Lisinopril 20 MG TABLET PO SCH (08:00)
[2018-01-10] MEDS: Ascorbic Acid 500 MG TABLET PO SCH ×2 (08:07→17:17)
[2018-01-10] MEDS: FLUoxetine 20 MG CAPSULE PO SCH ×2 (08:07→17:17)
[2018-01-10] MEDS: clonazePAM 1 MG TABLET PO SCH ×2 (08:07→21:22)
[2018-01-10] MEDS: Multivit/Ca/Min/Fe/FA 1 TAB TABLET PO SCH (08:07)
[2018-01-10] MEDS: *HR* OxyCODONE Immed Rel 5 MG TABLET PO PRN ×3 (08:08→21:22)
--- NOTE | 2018-01-10 12:37 | Event Note ---
Date of Encounter: 01/10/18 Time of Encounter: 23:20 PCR - POD#1 - Left THR Patient seen at bedside, without complaints. A&O x 3 Afebrile, vital signs reviewed - 99.2 temp; no acut symptoms - push IS and hydration, patient lost IV early in morning Labs reviewed. H/H - stable, asymptomatic Pain control: adequate Participating in PT. All questions and concerns addressed. Educated on use of incentive spirometer. Encouraged ambulation and proper hydration. Patient educated on post-operative restrictions and post-operative care. Assessment and plan: Continue with postoperative care Discharge plan: Home, discharge in PM on CBC 01/10/18 Range/Units 01:31 Hgb 10.4 L D (12.9-16.9) g/dL Hct 32.9 L (37.5-50.1) % BMP 01/10/18 Range/Units 01:31 Sodium 132 L (136-145) mEq/L Potassium 4.5 (3.5-5.1) mEq/L Chloride 103 (98-107) mEq/L Carbon Dioxide 20 L (23-29) mEq/L BUN 14 (6-20) mg/dL Creatinine 0.86 (0.70-1.30) mg/dL Glucose 126 H (70-105) mg/dL Calcium 8.5 L (8.6-10.3) mg/dL Vital Signs Temp Pulse Resp BP Pulse Ox 01/10/18 22:19 100.3 F H 124 18 106/57 93 01/10/18 18:46 99.0 F 123 17 112/55 93 01/10/18 17:04 104/70 01/10/18 16:32 99.9 F H 125 20 94/57 93 01/10/18 11:44 99.0 F 115 18 102/63 96 01/10/18 07:43 98.8 F 96 18 113/71 96 01/10/18 03:41 97.3 F L 69 17 137/74 99 Intake and Output 01/10/18 01/10/18 01/10/18 07:59 15:59 23:59 Intake Total 240 / 240 Output Total 200 / 200 300 / 300 Balance 40 / 40 -300 / -300 Intake: Oral 240 / 240 Output: Urine 200 / 200 300 / 300 Other: Meal Breakfast Percent of Meal Consumed 100%
[2018-01-10] MEDS ORDERED: Acetaminophen 325 MG TABLET PO PRN (22:42)
[2018-01-10] MEDS: Ringers Solution, Lactated 1,000 ML IVC SCH (23:38)
[2018-01-11 02:24] LABS: Basophils % 0.2 %; Eosinophils % 0.2 %; Hematocrit 30.1 % (37.5-50.1); Immature Granulocytes % 0.4 % (0-4); Lymphocytes # 1.5 K/mcL (0.6-4.6); Mean Corpuscular HGB Conc 33.2 g/dL (31.6-35.5); Mean Corpuscular Volume 84.3 fL (83.0-100.0); Mean Platelet Volume 9.5 fL (9.4-12.4); Monocytes # 1.1 K/mcL (0.0-1.3); Monocytes % 9.9 %; Neutrophils # 8.8 K/mcL (1.6-8.9); Platelet Count 227 K/mcL (140-400); Red Blood Count 3.57 M/mcL (4.19-5.50); Red Cell Distribution Width 13.6 % (11.5-14.5); Segmented Neutrophils % 76.3 %
[2018-01-11 02:50] LABS: Alanine Aminotransferase 17 Units/L (7-52); Albumin 3.8 g/dL (3.5-5.7); Albumin/Globulin Ratio 1.8 (1.1-2.2); Alkaline Phosphatase 71 Units/L (34-104); Aspartate Amino Transferase 53 Units/L (13-39); BUN/Creatinine Ratio 19 (6-26); Bilirubin,Total 0.3 mg/dL (0.3-1.0); Blood Urea Nitrogen 18 mg/dL (6-20); Calcium 9.2 mg/dL (8.6-10.3); Carbon Dioxide 21 mEq/L (23-29); Chloride 103 mEq/L (98-107); Globulin 2.1 g/dL (2.4-3.5); Glucose 119 mg/dL (70-105); Osmolality,Calculated 275 (280-300); Potassium 4.3 mEq/L (3.5-5.1); Sodium 131 mEq/L (136-145); Total Protein 5.9 g/dL (6.4-8.9); eGFR For Non-African Americans > 60 (> 60)
[2018-01-11] MEDS: *HR* OxyCODONE/APAP 5/325 TABLET PO PRN ×2 (05:44→21:27)
[2018-01-11] MEDS: *HR* Enoxaparin 30 MG/0.3 ML SYRINGE SQ SCH ×2 (05:45→17:05)
--- NOTE | 2018-01-11 07:50 | Orthopedics Progress Note ---
Date of Encounter: 01/11/18 Time of Encounter: 07:50 - Assessment and Plan (1) Arthritis of left hip Current Visit: No Status: Chronic (2) Status post total hip replacement, left Current Visit: No Status: Acute (3) Status post total hip replacement, right Current Visit: No Status: Chronic (4) HTN (hypertension) Current Visit: No Status: Chronic Qualifiers: Hypertension type: essential hypertension Qualified Code(s): I10 - Essential (primary) hypertension (5) History of congenital dysplasia of hip Current Visit: No Status: Chronic (6) Hypothyroidism Current Visit: No Status: Chronic Qualifiers: Hypothyroidism type: unspecified Qualified Code(s): E03.9 - Hypothyroidism , unspecified (7) Morbid obesity with BMI of 40.0-44.9, adult Current Visit: No Status: Chronic Subjective Interval history: Patient was seen this morning doing well without complaints. Afebrile vital signs stable. Operative extremity: Neurovascularly intact Dressing clean dry and intact Calves nontender Assessment and plan: Continue with postoperative care Hematocrit 30 Objective Vital signs: Vital Signs Temp Pulse Resp BP Pulse Ox 01/11/18 06:47 98.4 F 118 16 116/75 96 01/11/18 04:05 99.1 F 110 18 125/74 93 01/10/18 22:19 100.3 F H 124 18 106/57 93 01/10/18 18:46 99.0 F 123 17 112/55 93 01/10/18 17:04 104/70 01/10/18 16:32 99.9 F H 125 20 94/57 93 01/10/18 11:44 99.0 F 115 18 102/63 96 Intake and Output 01/10/18 01/10/18 01/11/18 15:59 23:59 07:59 Intake Total 240 / 240 300 / 300 Output Total 200 / 200 300 / 300 1150 / 1150 Balance 40 / 40 -300 / -300 -850 / -850 Intake: Oral 240 / 240 300 / 300 Output: Urine 200 / 200 300 / 300 1150 / 1150 Other: Meal Breakfast Percent of Meal Consumed 100% Weight 117.2 kg Patient Weight 01/11/18 23:59 Weight 117.2 kg - Labs CBC & BMP: 01/11/18 02:01 01/11/18 02:01 Labs: Abnormal lab results WBC 11.6 K/mcL (4.3-11.1) H 01/11/18 02:01 RBC 3.57 M/mcL (4.19-5.50) L 01/11/18 02:01 Hgb 10.0 g/dL (12.9-16.9) L 01/11/18 02:01 Hct 30.1 % (37.5-50.1) L 01/11/18 02:01 Sodium 131 mEq/L (136-145) L 01/11/18 02:01 Carbon Dioxide 21 mEq/L (23-29) L 01/11/18 02:01 Glucose 119 mg/dL (70-105) H 01/11/18 02:01 Calculated Osmolality 275 (280-300) L 01/11/18 02:01 AST 53 Units/L (13-39) H 01/11/18 02:01 Serum Total Protein 5.9 g/dL (6.4-8.9) L 01/11/18 02:01 Globulin 2.1 g/dL (2.4-3.5) L 01/11/18 02:01 - VTE Documentation of Mechanical Device: Venous foot pump, device Consult Discharge Plan - Plan Referrals: Ale Cerrato CNP [Primary Care Provider] -
[2018-01-11] MEDS: Lisinopril 20 MG TABLET PO SCH (09:00)
[2018-01-11] MEDS: clonazePAM 1 MG TABLET PO SCH ×2 (09:01→21:25)
[2018-01-11] MEDS: Multivit/Ca/Min/Fe/FA 1 TAB TABLET PO SCH (09:01)
[2018-01-11] MEDS: Ascorbic Acid 500 MG TABLET PO SCH ×2 (09:01→17:05)
[2018-01-11] MEDS: Gabapentin 400 MG CAPSULE PO SCH ×3 (09:01→21:24)
[2018-01-11] MEDS: FLUoxetine 20 MG CAPSULE PO SCH ×2 (09:01→17:05)
[2018-01-11] MEDS: traMADol 50 MG TABLET PO PRN ×2 (09:02→18:30)
--- NOTE | 2018-01-11 12:21 | Physician Discharge Referral ---
ExtendedCare Referral Info Transfer To: [facility] Provider in Charge after Transfer: PCP Institutional Level of Care: Skilled - Diagnosis (1) Status post total hip replacement, left Priority: Primary Status: Acute (2) History of congenital dysplasia of hip Priority: Primary Status: Chronic (3) Arthritis of left hip Priority: Secondary Status: Chronic (4) HTN (hypertension) Priority: Secondary Status: Chronic (5) Hypothyroidism Priority: Secondary Status: Chronic (6) Morbid obesity with BMI of 40.0-44.9, adult Priority: Secondary Status: Chronic (7) Acute blood loss anemia Priority: Primary Status: Acute Expected Duration of Placement: < 30 days Prognosis: Good Aware of Diagnosis: Patient Aware of Prognosis: Patient - Transfer Medications Home Medications: Aspirin Enteric Coated [Aspirin EC] 325 mg PO BID 10 Days #20 tablet.dr [Rx] OxyCODONE Immed Rel [Roxicodone 5 MG] 5 mg PO Q6HR PRN 7 Days #28 tablet [Rx] Albuterol Sulfate [Albuterol Inhaler] 2 puff IH Q4HR PRN 01/09/18 [History] Cyclobenzaprine [Flexeril] 10 mg PO BID 01/09/18 [History] FLUoxetine HCl [PROzac] 40 mg PO QPM 01/09/18 [History] FLUoxetine HCl [Prozac] 40 mg PO QAM 01/09/18 [History] Gabapentin [Neurontin] 800 mg PO TID 01/09/18 [History] Levothyroxine [Synthroid] 125 mcg PO 0630 01/09/18 [History] Lisinopril [Lisinopril] 30 mg PO DAILY 01/09/18 [History] Meloxicam [Mobic] 15 mg PO DAILY 01/09/18 [History] Simvastatin [Zocor] 40 mg PO HS 01/09/18 [History] Sulfamethoxazole/Trimeth DS [Bactrim DS] 1 each PO BID 10 Days #20 tablet [Rx] clonazePAM [Clonazepam] 1 mg PO BID 01/09/18 [History] Allergies/Adverse Reactions: 3 Allergy/AdvReac Type Severity Reaction Status Date / Time No Known Allergies Allergy Verified 01/09/18 12:04 - Respiratory Orders None Smoking Cessation: Smoking cessation has been advised. For more information, call the [place] Tobacco Quit Line at 7-478-IDJC-NOW. - Mobility Orders Chair, Ambulate - Rehabiliation Orders Rehab Potential: Good Rehab Orders: ROM Exercises, Evaluation for Physical Therapy, Evaluation for Occupational Therapy - Treatments Skin tear care topically daily PRN per policy - Diet Orders Regular CERTIFICATION: I certify that the transfer of the above named patient to an Extended Care Facility is necessary for the continuing treatment of the diagnosis listed. The above information is true and accurate reflection of patient's current condition. Confidential - Redisclosure prohibited without a patient's written consent.
[2018-01-11] MEDS: *HR* OxyCODONE Immed Rel 5 MG TABLET PO PRN ×2 (12:55→17:05)
[2018-01-11 15:22] LABS: Hemoglobin 9.8 g/dL (12.9-16.9)
--- NOTE | 2018-01-11 15:39 | Physician Discharge Referral ---
Home Health/Hosp Referral Info Transfer to: Home Health Provider in Charge Post Discharge: PCP - Diagnosis (1) Status post total hip replacement, left Priority: Primary Status: Acute (2) History of congenital dysplasia of hip Priority: Primary Status: Chronic (3) Arthritis of left hip Priority: Primary Status: Chronic (4) HTN (hypertension) Priority: Secondary Status: Chronic (5) Hypothyroidism Priority: Secondary Status: Chronic (6) Morbid obesity with BMI of 40.0-44.9, adult Priority: Secondary Status: Chronic (7) Acute blood loss anemia Priority: Secondary Status: Acute - Respiratory Orders None Smoking Cessation: Smoking cessation has been advised. For more information, call the [place] Tobacco Quit Line at 5-256-HQPQ-NOW. - Diet/Nutrition Diet/Nutrition Orders: Regular - Activity Activity Orders: Up ad marilyn, Ambulate, Walker - Services Needed Following services are medically necessary services: Nursing, Home Health Aide, Physical Therapy, Occupational Therapy Home Care Orders: Opsite dressing, leave intact until first post-operative visit. If dressing becomes >50% saturated, contact office, remove dressing and place appropriate dressing in its place. Do not allow for dressing to get wet. Zipline/[place] in place, plan to remove at post-operative day #14-16. Total Joint Precautions x 6 weeks Apply cold therapy wrap 3-6x/day for 20 minutes at a time. Encourage ambulation throughout the day Use Incentive spirometer 10x/hour. Elevate affected extremity above heart as tolerated. Brace: Wear hip abductor brace at night x 6 weeks.~ Follow up with PCP for tachycardia - Transfer Medications Home Medications: Aspirin Enteric Coated [Aspirin EC] 325 mg PO BID 10 Days #20 tablet. [Rx] OxyCODONE Immed Rel [Roxicodone 5 MG] 5 mg PO Q6HR PRN 7 Days #28 tablet [Rx] Albuterol Sulfate [Albuterol Inhaler] 2 puff IH Q4HR PRN 01/09/18 [History] Cyclobenzaprine [Flexeril] 10 mg PO BID 01/09/18 [History] FLUoxetine HCl [PROzac] 40 mg PO QPM 01/09/18 [History] FLUoxetine HCl [Prozac] 40 mg PO QAM 01/09/18 [History] Gabapentin [Neurontin] 800 mg PO TID 01/09/18 [History] Levothyroxine [Synthroid] 125 mcg PO 0630 01/09/18 [History] Lisinopril [Lisinopril] 30 mg PO DAILY 01/09/18 [History] Meloxicam [Mobic] 15 mg PO DAILY 01/09/18 [History] Simvastatin [Zocor] 40 mg PO HS 01/09/18 [History] Sulfamethoxazole/Trimeth DS [Bactrim DS] 1 each PO BID 10 Days #20 tablet [Rx] clonazePAM [Clonazepam] 1 mg PO BID 01/09/18 [History] Allergies/Adverse Reactions: 3 Allergy/AdvReac Type Severity Reaction Status Date / Time No Known Allergies Allergy Verified 01/09/18 12:04 Certification: Further, I certify that my clinical findings support that this patient is homebound (i.e. absences from home require considerable and taxing effort and are for medical reasons or scientology services or infrequently or short duration when for other reasons) because: Homebound Reason: Post-surgery restriction and or conditions limit ability to leave home Attestation: My signature below is to certify that this patient is under my care and that I, or nurse practitioner, or a physician's neurology physician assistant working with me, has a face-to -face encounter with this patient.
--- NOTE | 2018-01-11 15:41 | Event Note ---
Date of Encounter: 01/11/18 Time of Encounter: 15:39 PCR - POD#2 - Left THR Patient seen at bedside, without complaints. A&O x 3 Afebrile, vital signs reviewed - stable temp; no acut symptoms - push IS and hydration, patient lost IV again this morning because he pulled it out. Labs reviewed. H/H - stable, asymptomatic Pain control: adequate; continues to have difficulty sleeping. Increase Flexeril 10mg TID Lidoderm patch. Participating in PT. All questions and concerns addressed. Educated on use of incentive spirometer. Encouraged ambulation and proper hydration. Patient educated on post-operative restrictions and post-operative care. Assessment and plan: Continue with postoperative care Discharge plan: Home, discharge in AM with HH.
[2018-01-11] MEDS ORDERED: 0.9 % Sodium Chloride 250 ML ONE (21:26)
[2018-01-12] MEDS: *HR* OxyCODONE/APAP 5/325 TABLET PO PRN ×2 (04:44→09:40)
[2018-01-12 04:56] LABS: Basophils % 0.2 %; Eosinophils # 0.1 K/mcL (0.0-0.6); Eosinophils % 0.5 %; Hematocrit 28.2 % (37.5-50.1); Hemoglobin 9.2 g/dL (12.9-16.9); Immature Granulocytes % 0.4 % (0-4); Lymphocytes # 1.4 K/mcL (0.6-4.6); Lymphocytes % 13.5 %; Mean Corpuscular HGB Conc 32.6 g/dL (31.6-35.5); Mean Corpuscular Hemoglobin 27.7 pg (28.0-33.3); Mean Corpuscular Volume 84.9 fL (83.0-100.0); Mean Platelet Volume 9.4 fL (9.4-12.4); Monocytes # 1.1 K/mcL (0.0-1.3); Monocytes % 10.9 %; Neutrophils # 7.8 K/mcL (1.6-8.9); Platelet Count 203 K/mcL (140-400); Red Blood Count 3.32 M/mcL (4.19-5.50); Red Cell Distribution Width 13.5 % (11.5-14.5); Segmented Neutrophils % 74.5 %
[2018-01-12 05:16] LABS: BUN/Creatinine Ratio 17 (6-26); Blood Urea Nitrogen 15 mg/dL (6-20); Calcium 9.2 mg/dL (8.6-10.3); Carbon Dioxide 24 mEq/L (23-29); Chloride 100 mEq/L (98-107); Glucose 103 mg/dL (70-105); Osmolality,Calculated 271 (280-300); Potassium 3.9 mEq/L (3.5-5.1); Sodium 130 mEq/L (136-145); eGFR For Non-African Americans > 60 (> 60)
[2018-01-12] MEDS: *HR* Enoxaparin 30 MG/0.3 ML SYRINGE SQ SCH (06:50)
--- NOTE | 2018-01-12 08:01 | Orthopedics Progress Note ---
Date of Encounter: 01/12/18 Time of Encounter: 07:59 - Assessment and Plan (1) Status post total hip replacement, left Current Visit: No Status: Acute (2) History of congenital dysplasia of hip Current Visit: No Status: Chronic (3) Arthritis of left hip Current Visit: No Status: Chronic (4) HTN (hypertension) Current Visit: No Status: Chronic Qualifiers: Hypertension type: essential hypertension Qualified Code(s): I10 - Essential (primary) hypertension (5) Hypothyroidism Current Visit: No Status: Chronic Qualifiers: Hypothyroidism type: unspecified Qualified Code(s): E03.9 - Hypothyroidism , unspecified (6) Morbid obesity with BMI of 40.0-44.9, adult Current Visit: No Status: Chronic (7) Acute blood loss anemia Current Visit: No Status: Acute Subjective Principal diagnosis: right THR 01/09/18 Interval history: Patient was seen this morning doing well without complaints. A&Ox3 Afebrile, vital signs stable - he was transfused 1 unit last night, with slight improvement with tachycardia which patient reports is chronic. He has seen PCP for this in the past. Operative extremity: Neurovascularly intact Dressing clean dry and intact Calves nontender Assessment and plan: Continue with postoperative care Hemoglobin 9.8/30 but still symptomatic with tachycardia Will transfuse 1 more unit today before DC Plan: D/C today after transfusion with HH or OP Vital Signs Temp Pulse Resp BP Pulse Ox 01/12/18 07:31 98.8 F 112 20 107/60 96 01/12/18 04:30 98.1 F 112 18 114/70 95 01/12/18 00:51 99.8 F H 115 15 105/58 94 01/11/18 23:43 97.9 F 119 18 107/57 92 01/11/18 22:04 100 F H 124 16 115/53 93 01/11/18 21:56 93 01/11/18 21:49 100.8 F H 125 14 100/51 93 01/11/18 19:00 98.1 F 131 17 95/59 95 01/11/18 17:00 98.1 F 129 16 105/57 96 01/11/18 10:16 97.4 F L 121 16 121/73 96 Intake and Output 01/11/18 01/12/18 01/12/18 23:59 07:59 15:59 Intake Total 0 / 0 350 / 350 Output Total 375 / 375 950 / 950 Balance -375 / -375 -600 / -600 Intake: Blood Product 0 / 0 350 / 350 Rbcs Leuko Poor As-1 Unit 0 / 0 350 / 350 [id number] Output: Urine 375 / 375 950 / 950 Other: Weight 117.3 kg Patient Weight 01/12/18 23:59 Weight 117.3 kg Short CBC 01/12/18 01/11/18 Range/Units 04:44 14:43 WBC 10.5 (4.3-11.1) K/mcL Hgb 9.2 L 9.8 L (12.9-16.9) g/dL Hct 28.2 L 30.0 L (37.5-50.1) % Plt Count 203 (140-400) K/mcL Neutrophils # 7.8 (1.6-8.9) K/mcL BMP 01/12/18 Range/Units 04:44 Sodium 130 L (136-145) mEq/L Potassium 3.9 (3.5-5.1) mEq/L Chloride 100 (98-107) mEq/L Carbon Dioxide 24 (23-29) mEq/L BUN 15 (6-20) mg/dL Creatinine 0.88 (0.70-1.30) mg/dL Glucose 103 (70-105) mg/dL Calcium 9.2 (8.6-10.3) mg/dL Objective Vital signs: Vital Signs Temp Pulse Resp BP Pulse Ox 01/12/18 07:31 98.8 F 112 20 107/60 96 01/12/18 04:30 98.1 F 112 18 114/70 95 01/12/18 00:51 99.8 F H 115 15 105/58 94 01/11/18 23:43 97.9 F 119 18 107/57 92 01/11/18 22:04 100 F H 124 16 115/53 93 01/11/18 21:56 93 01/11/18 21:49 100.8 F H 125 14 100/51 93 01/11/18 19:00 98.1 F 131 17 95/59 95 01/11/18 17:00 98.1 F 129 16 105/57 96 01/11/18 10:16 97.4 F L 121 16 121/73 96 Intake and Output 01/11/18 01/11/18 01/12/18 15:59 23:59 07:59 Intake Total 360 / 360 0 / 0 350 / 350 Output Total 825 / 825 375 / 375 950 / 950 Balance -465 / -465 -375 / -375 -600 / -600 Intake: Oral 360 / 360 Blood Product 0 / 0 350 / 350 Rbcs Leuko Poor As-1 Unit 0 / 0 350 / 350 [id number] Output: Urine 825 / 825 375 / 375 950 / 950 Other: Meal Breakfast Percent of Meal Consumed 100% Weight 117.3 kg Patient Weight 01/12/18 23:59 Weight 117.3 kg - Labs CBC & BMP: 01/12/18 04:44 01/12/18 04:44 Labs: Abnormal lab results RBC 3.32 M/mcL (4.19-5.50) L 01/12/18 04:44 Hgb 9.2 g/dL (12.9-16.9) L 01/12/18 04:44 Hct 28.2 % (37.5-50.1) L 01/12/18 04:44 MCH 27.7 pg (28.0-33.3) L 01/12/18 04:44 Sodium 130 mEq/L (136-145) L 01/12/18 04:44 Calculated Osmolality 271 (280-300) L 01/12/18 04:44 AST 53 Units/L (13-39) H 01/11/18 02:01 Serum Total Protein 5.9 g/dL (6.4-8.9) L 01/11/18 02:01 Globulin 2.1 g/dL (2.4-3.5) L 01/11/18 02:01 - VTE Documentation of Mechanical Device: Venous foot pump, device Consult Discharge Plan - Plan Referrals: Ale Cerrato CNP [Primary Care Provider] -
[2018-01-12] MEDS: Ascorbic Acid 500 MG TABLET PO SCH (09:23)
[2018-01-12] MEDS: clonazePAM 1 MG TABLET PO SCH (09:24)
[2018-01-12] MEDS: Multivit/Ca/Min/Fe/FA 1 TAB TABLET PO SCH (09:24)
[2018-01-12] MEDS: Gabapentin 400 MG CAPSULE PO SCH (09:24)
[2018-01-12] MEDS: FLUoxetine 20 MG CAPSULE PO SCH (09:24)
[2018-01-12] MEDS ORDERED: 0.9 % Sodium Chloride 250 ML ONE (09:31)
[2018-01-12] MEDS: Lisinopril 20 MG TABLET PO SCH (09:35)
[2018-01-12 13:05] VITALS: BP 112/75
--- NOTE | 2018-01-15 09:30 | Electrocardiograph Report ---
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
== END 2018-01-12 15:24 | disposition home or self-care (01) | DRG 470 ==
LOC: SAMDAY 11:13 → 3NENU 15:50
PROVIDERS: ADMIT Orthopaedic Surgery; ATTEND Orthopaedic Surgery